=== PATIENT | male | born 2000 | race African-American/Black ===

== ENCOUNTER → 2018-11-06 | Outpatient (CLI) | payer OTHER ==
--- NOTE | 2018-11-07 09:53 | REP ---
CHEST, TWO VIEWS: There is no evidence of acute infiltrate. No pleural effusion is seen. The heart is normal in size. The mediastinal silhouette is unremarkable. The visualized osseous structures are intact. IMPRESSION: No acute pulmonary disease. Electronically Signed by Gerhard Briceno MD 11/07/2018 11:15 P
== END ==
LOC: M WUC 17:12
PROVIDERS: ATTEND Physician Assistant
DX: R05 Cough (principal)

== ENCOUNTER 2018-12-04 20:54 | Emergency (ER) | payer BC, OTHER ==
[~2018-12-04] VITALS: Ht 190.5 cm; Wt 129.8 kg
[2018-12-04] MEDS ORDERED: ONDA4TAB6 PO (22:13)
[2018-12-04] MEDS ORDERED: OMEP-221 PO (22:13)
[2018-12-04] MEDS ORDERED: TRIA1OI TOP (23:31)
[2018-12-04 23:39] VITALS: BP 151/94
== END 2018-12-04 23:40 | disposition home or self-care (01) ==
LOC: M ED 20:54
DX: K12.1 Other forms of stomatitis (principal); I10 Essential (primary) hypertension; Z79.899 Other long term (current) drug therapy